=== PATIENT | male | born 1960 | race Caucasian/White ===

== ENCOUNTER 2023-08-08 17:55 | Emergency (ER) | payer MEDICAID ==
[~2023-08-08] VITALS: Ht 175.3 cm; Wt 63.6 kg
[2023-08-08] MEDS ORDERED: HYDROcodone/acetaminophen 10/325mg tab PO STA (18:03)
[2023-08-08] MEDS ORDERED: ceFAZolin 1gm IM kit IM ONE (19:15)
[2023-08-08] MEDS ORDERED: TETanus/Pertussis (Acell)/Diphther VAC/PF (Tdap-Adult) 0.5ml syringe IMVAC ONE (19:15)
[2023-08-08] MEDS ORDERED: CEPH500C2 PO (20:30)
[2023-08-08] MEDS ORDERED: IBUP-1984 PO (20:30)
[2023-08-08 21:17] VITALS: BP 110/85; PULSE 66; RESP 16; TEMP 98.3; O2SAT 96
--- NOTE | 2023-08-08 23:05 | NUR ---
I have reviewed and agree with all interventions, assessments performed and documented by Nicole RUSH.
== END 2023-08-08 21:21 | disposition home or self-care (01) ==
LOC: ER 17:56
DX: S62.631B Displaced fracture of distal phalanx of left index finger, initial encounter for open fracture (principal); W31.2XXA Contact with powered woodworking and forming machines, initial encounter; Y93.89 Activity, other specified; Y92.89 Other specified places as the place of occurrence of the external cause; Y99.8 Other external cause status
CPT/HCPCS: 73140; 90471; 90715; 96372; 99284; J0690

== ENCOUNTER 2024-12-24 19:05 | Emergency (ER) | payer MEDICAID ==
[~2024-12-24] VITALS: Ht 175.3 cm; Wt 68.1 kg
[2024-12-24 19:23] LABS: BASOPHILS # (AUTO) 0.1 X10'3 (0-0.2); BASOPHILS % (AUTO) 0.5 % (0-1); EOSINOPHILS # (AUTO) 0.4 X10'3 (0-0.9); EOSINOPHILS % (AUTO) 4.2 % (0-6); HEMATOCRIT 42.9 % (42.0-52.0); HEMOGLOBIN 14.6 g/dl (14.0-17.9); LYMPHOCYTES # (AUTO) 3.6 X10'3 (1.1-4.8); LYMPHOCYTES % (AUTO) 35.2 % (21-51); MEAN CORPUSCULAR HEMOGLOBIN 30.8 PG (27.0-31.0); MEAN CORPUSCULAR HGB CONC 34.1 g/dL (33.0-36.5); MEAN CORPUSCULAR VOLUME 90.4 FL (78-98); MEAN PLATELET VOLUME 9.1 FL (7.4-10.4); MONOCYTES # (AUTO) 1.1 X10'3 (0-0.9); MONOCYTES % (AUTO) 10.9 % (2-12); NEUTROPHILS % (AUTO) 49.2 % (42-75); PLATELET COUNT 336 X10'3 (140-440); RED BLOOD COUNT 4.75 X10'6 (4.70-6.10); RED CELL DISTRIBUTION WIDTH 12.4 % (11.5-14.5); WHITE BLOOD COUNT 10.1 X10'3 (4.5-11.0)
[2024-12-24] MEDS: naloxone 2mg/2ml inj IV STA (19:24)
[2024-12-24] MEDS: ondansetron/PF 4mg/2ml inj IV ONE (19:24)
[2024-12-24] MEDS ORDERED: NO HOME MEDS (19:25)
[2024-12-24 19:46] LABS: ALANINE AMINOTRANSFERASE 87 U/L (12-78); ALBUMIN 3.5 G/DL (3.4-5.0); ALBUMIN/GLOBULIN RATIO 0.9 (1.1-1.5); ALKALINE PHOSPHATASE 65 IU/L (46-116); ANION GAP 10 (8-16); ASPARTATE AMINO TRANSFERASE 59 U/L (10-37); BILIRUBIN,TOTAL 0.3 MG/DL (0.1-1.0); BLOOD UREA NITROGEN 15 MG/DL (7-18); BUN/CREATININE RATIO 16.9 (10.0-20.0); CALCIUM 8.5 MG/DL (8.5-10.1); CHLORIDE 105 MMOL/L (99-107); CREATININE 0.89 MG/DL (0.60-1.10); ETHANOL < 10 MG/DL (<10); GLUCOSE 219 MG/DL (70-104); MAGNESIUM 2.2 MG/DL (1.5-2.4); POTASSIUM 3.5 MMOL/L (3.5-5.1); SODIUM 142 MMOL/L (135-145); TOTAL CARBON DIOXIDE 27.5 MMOL/L (24-32); TOTAL PROTEIN 7.5 G/DL (6.4-8.2); eCRCL 80 ML/MIN; eGFR 86 ML/MIN
[2024-12-24] MEDS ORDERED: NALO4SPR BOTHNARES (23:17)
[2024-12-25 00:05] VITALS: BP 117/68; PULSE 72; RESP 12; TEMP 98.6; O2SAT 96
== END 2024-12-25 01:36 | disposition home or self-care (01) ==
LOC: ER 19:06
DX: T40.2X1A Poisoning by other opioids, accidental (unintentional), initial encounter (principal); R40.2A Nontraumatic coma due to underlying condition; Y92.89 Other specified places as the place of occurrence of the external cause
CPT/HCPCS: 36415; 80053; 80320; 83735; 84484; 85025; 93005; 96374; 96375; 99285; J2310; J2405

== ENCOUNTER 2025-01-29 12:16 | Inpatient (IN) | payer MEDICAID ==
[~2025-01-29] VITALS: Ht 175.3 cm; Wt 63.6 kg
[~2025-01-29 12:16] MED LIST: NALO4SPR BOTHNARES; NO HOME MEDS
[2025-01-29 13:40] LABS: BASOPHILS # (AUTO) 0.1 X10'3 (0-0.2); BASOPHILS % (AUTO) 0.3 % (0-1); EOSINOPHILS % (AUTO) 0.1 % (0-6); HEMATOCRIT 45.8 % (42.0-52.0); HEMOGLOBIN 15.8 g/dl (14.0-17.9); LYMPHOCYTES # (AUTO) 1.4 X10'3 (1.1-4.8); MEAN CORPUSCULAR HEMOGLOBIN 30.3 PG (27.0-31.0); MEAN CORPUSCULAR HGB CONC 34.4 g/dL (33.0-36.5); MEAN CORPUSCULAR VOLUME 88.1 FL (78-98); MEAN PLATELET VOLUME 9.5 FL (7.4-10.4); MONOCYTES # (AUTO) 2.1 X10'3 (0-0.9); MONOCYTES % (AUTO) 9.2 % (2-12); NEUTROPHILS # (AUTO) 19.1 X10'3 (1.8-7.7); NEUTROPHILS % (AUTO) 84.4 % (42-75); PLATELET COUNT 209 X10'3 (140-440); RED CELL DISTRIBUTION WIDTH 12.5 % (11.5-14.5); WHITE BLOOD COUNT 22.6 X10'3 (4.5-11.0)
[2025-01-29 13:56] LABS: ALANINE AMINOTRANSFERASE 85 U/L (12-78); ALBUMIN 3.7 G/DL (3.4-5.0); ALBUMIN/GLOBULIN RATIO 1.1 (1.1-1.5); ALKALINE PHOSPHATASE 68 IU/L (46-116); ANION GAP 7 (8-16); ASPARTATE AMINO TRANSFERASE 53 U/L (10-37); BILIRUBIN,TOTAL 1.3 MG/DL (0.1-1.0); BLOOD UREA NITROGEN 15 MG/DL (7-18); CALCIUM 8.9 MG/DL (8.5-10.1); CHLORIDE 101 MMOL/L (99-107); CREATININE 0.94 MG/DL (0.60-1.10); GLUCOSE 119 MG/DL (70-104); LIPASE 16 U/L (16-77); POTASSIUM 4.4 MMOL/L (3.5-5.1); SODIUM 137 MMOL/L (135-145); TOTAL PROTEIN 7.2 G/DL (6.4-8.2); eCRCL 71 ML/MIN; eGFR 81 ML/MIN
[2025-01-29 14:54] LABS: BILIRUBIN,URINE NEGATIVE (Neg); CLARITY,URINE CLEAR (Clear); COLOR,URINE YELLOW (Yellow); GLUCOSE, URINE NEGATIVE (Neg); KETONES,URINE NEGATIVE (Neg); LEUKOCYTE ESTERASE ,URINE NEGATIVE (Neg); NITRITES, URINE NEGATIVE (Neg); OCCULT BLOOD,URINE TRACE-INTACT (Neg); PROTEIN,URINE NEGATIVE (Neg); UROBILINOGEN,URINE 0.2 E.U/dL (0.2-1.0)
[2025-01-29 14:56] LABS: UA COLLECTION TYPE CLN CATCH MIDSTREAM
--- NOTE | 2025-01-29 14:56 | Physician Documentation ---
History of Present Illness General Chief Complaint: Headache Stated Complaint: N/V Time Seen by MD: 14:41 Primary Medical Doctor: [facility] History of Present Illness Initial Comments Otherwise healthy 64-year-old male presents to the emergency department with the acute onset today of myalgias, rigors and headache weakness. Reports yesterday went to work feeling well woke up this morning not well. Denies cough. Uncertain of fever. Denies pertinent medical history, allergies or medications. He does smoke cigarettes and occasionally drinks. Denies recent travels hospitalizations or known ill contacts. He appears nontoxic at this time yet in discomfort. Medication Reconciliation Allergies: Coded Allergies: No Known Allergies (Unverified , 01/29/25) Scheduled Naloxone HCl (Narcan), 1 SPRAYS BOTHNARES ONCE Miscellaneous Medications Home Med List (No Home Medications), (Reported) Review of Systems All Other Systems at this time: Reviewed and Negative Constitutional: Reports: fever, chills, weakness HENT: Denies: ear pain, throat pain RESP: Denies: short of breath, cough CV: Denies: chest pain GI: Reports: nausea; Denies: abdominal pain, vomiting : Denies: flank pain, hematuria, dysuria Musc: Reports: back pain Neuro: Reports: headache Integ: Denies: rash Psych: Denies: anxiety Physical Exam Physical Exam Vital Signs: RN Vital Signs have been reviewed: Yes, Temperature: 99.2, Source: Temporal, Heart Rate: 78, Respiratory Rate: 16, BP: 129/73, Pulse Oximetry: 99, Weight: 63.640 Oxygen Flow Rate: 0 General Appearance: alert, WD/WN, moderate distress Head: normal inspection Face: normal inspection Pupils/EOM/Fundus: PERRLA Ear: canal normal Nose: septal deviation Neck: non-tender, full range of motion, supple; No: meningeal signs Respiratory: lungs clear, normal breath sounds Chest: no accessory muscle use Cardiovascular: normal peripheral pulses Gastrointestinal: normal palpation Back: normal inspection, no CVA tenderness Extremities: normal range of motion Neurologic: oriented x4, wharfmaster II-XII nml as tested Motor / Sensory: no motor deficit, no sensory deficit Psychiatric: normal mood/affect Skin: normal color, warm/dry; No: rash Progress Results/Orders Results/Orders Orders - RENÉ MCLEAN Influenza Type A&B Rapid Test (01/29/25 14:59) Chest,Single View (01/29/25 ) Ceftriaxone/[id number]-[id number] 1gm (Rocephin 1 (01/29/25 17:05) Cbc/Diff (01/29/25 17:07) Culture Blood (01/29/25 17:07) Completed Orders - RENÉ MCLEAN PAC Normal Saline 1000ml (Sodium Chloride 10 (01/29/25 14:55) Ketorolac Trometh 30mg/Ml Vial (Toradol (01/29/25 14:55) Ondansetron Inj. (Zofran 4mg/2ml Vial) (01/29/25 14:55) Acetaminophen 1,000mg/100ml Iv (Ofirmev (01/29/25 14:55) Chest,Single View (01/29/25 ) Medications Received in ER Medications (Trade) Dose Ordered Sig/Stephania Route PRN Reason Start Time Stop Time Status Last Admin Dose Admin Sodium Chloride 1,000 ml @ 1,000 mls/hr ONCE ONCE IV 01/29/25 14:55 01/29/25 15:54 DC 01/29/25 15:19 1,000 MLS/HR (Toradol inj. 30mg/ml) 30 mg ONCE ONCE IV 01/29/25 14:55 01/29/25 14:57 DC 01/29/25 15:18 30 MG (Zofran 4mg/2ml vial) 4 mg ONCE ONCE IV 01/29/25 14:55 01/29/25 14:57 DC 01/29/25 15:19 4 MG Acetaminophen 100 ml @ 400 mls/hr ONCE ONCE IV 01/29/25 14:55 01/29/25 15:09 DC 01/29/25 15:19 400 MLS/HR Vital Signs 01/29/25 01/29/25 01/29/25 12:19 14:37 15:18 Temp 99.2 99.2 Pulse 99 78 Resp 16 16 18 B/P (MAP) 92/60 129/73 (91) Pulse Ox 95 99 O2 Flow Rate 0 Laboratory Tests Test 01/29/25 13:23 01/29/25 14:35 White Blood Count 22.6 H Red Blood Count 5.20 Hemoglobin 15.8 Hematocrit 45.8 Mean Corpuscular Volume 88.1 Mean Corpuscular Hemoglobin 30.3 Mean Corpuscular Hemoglobin Concent 34.4 Red Cell Distribution Width 12.5 Platelet Count 209 Mean Platelet Volume 9.5 Neutrophils (%) (Auto) 84.4 H Lymphocytes (%) (Auto) 6.0 L Monocytes (%) (Auto) 9.2 Eosinophils (%) (Auto) 0.1 Basophils (%) (Auto) 0.3 Neutrophils # (Auto) 19.1 H Lymphocytes # (Auto) 1.4 Monocytes # (Auto) 2.1 H Eosinophils # (Auto) 0.0 Basophils # (Auto) 0.1 CBC Comment Sodium Level 137 Potassium Level 4.4 Chloride Level 101 Carbon Dioxide Level 29.0 Anion Gap 7 L Blood Urea Nitrogen 15 Creatinine 0.94 Estimated GFR/1.73 m2 81 BUN/Creatinine Ratio 16.0 Glucose Level 119 H Calcium Level 8.9 Total Bilirubin 1.3 H Aspartate Amino Transf (AST/SGOT) 53 H Alanine Aminotransferase (ALT/SGPT) 85 H Alkaline Phosphatase 68 Total Protein 7.2 Albumin 3.7 Globulin 3.5 Albumin/Globulin Ratio 1.1 Lipase 16 Chemistry Comments Urine Specimen Description Cln catch midstream Urine Color Yellow Urine Clarity Clear Urine pH 6.0 Urine Specific [place] <=1.005 Urine Protein Negative Urine Glucose (UA) Negative Urine Ketones Negative Urine Occult Blood Trace-intact Urine Nitrite Negative Urine Bilirubin Negative Urine Urobilinogen 0.2 Urine Leukocyte Esterase Negative Urine RBC 10-20 Urine WBC 0-4 Urine Squamous Epithelial Cells Few Urine Bacteria None seen Urine Mucus None seen Urine Culture Indicated Not ind Volume Urine Centrifuged 10 ml Urine Comment Medical Decision Making Differential Diagnosis Examination history a 64-year-old male with chronic history consistent with acute viral or bacterial process. Leukocytosis noted in 22. This is with a left shift. Influenza screening unobtainable due to lab malfunction. COVID scr eening pending. We will go ahead and provide patient with IV Tylenol and Toradol. Symptomatically patient improved requiring less blankets and feeling much better. Still continues to be fatigue. Clinical suspicion that there was an underlying bacterial process per go ahead and screen with chest x-ray. Chest x-ray imaging consistent with a left lower lobe pneumonia/airspace disease and/or neoplasm. We will go ahead and place patient in pneumonia protocol. Delayed clinical diagnosis due to an atypical presentation initially thought to be that of acute viral syndrome. We will consult hospitalist for admission. Patient remains non hypoxic. Other differentials considered must include PE, CHF, neoplasm to include neoplasms involving the bladder. Departure Disposition: 09 ADMITTED INPATIENT Impression: Primary Impression: Pneumonia Qualified Codes: J18.9 - Pneumonia, unspecified organism Additional Impressions: Leukocytosis Qualified Codes: D72.829 - Elevated white blood cell count, unspecified Hematuria Qualified Codes: R31.9 - Hematuria, unspecified Referrals: NO PRIMARY CARE PROVIDER (PCP) Signature Scribe Signature: . Attestation: . RENÉ MCLEAN PAC January 29, 2025 14:56
[2025-01-29 15:00] LABS: BACTERIA,URINE NONE SEEN /HPF (Neg); MUCUS STRANDS NONE SEEN /LPF (Neg); SQUAMOUS EPITHELIAL CELL,UR FEW /LPF (FEW); WBC,URINE 0-4 /HPF (0-4)
[2025-01-29] MEDS: ketorolac trometh 30MG/ML vial 30 MG/ML VIAL IV ONE (15:18)
[2025-01-29] MEDS: ondansetron/PF 4mg/2ml inj IV ONE (15:19)
[2025-01-29] MEDS: acetaminophen 1,000mg/100ml IV 100 ML IV ONE (15:19)
[2025-01-29] MEDS: normal saline 1000ml 1,000 ML IV ONE (15:19)
--- NOTE | 2025-01-29 16:33 | RADIOLOGY REPORT ---
CHEST RADIOGRAPH Indication: weakness Technique: Single frontal view of the chest was obtained Comparison: None FINDINGS: Lines and Tubes: None Lungs: Left lower lobe airspace disease may be secondary to neoplasm or infection Pleura: No effusion. No pneumothorax. Cardiomediastinal contours: Unremarkable Bones: No acute osseous abnormality. IMPRESSION: 1. Left lower lobe airspace disease. May be secondary to neoplasm or infection.
[2025-01-29] MEDS: CefTRIAXone/D5W-Rocephin 1gm 50 ML IV ONE (17:45)
[2025-01-29 18:04] LABS: BASOPHILS % (AUTO) 0.1 % (0-1); EOSINOPHILS % (AUTO) 0 % (0-6); HEMATOCRIT 41.6 % (42.0-52.0); HEMOGLOBIN 14.1 g/dl (14.0-17.9); LYMPHOCYTES # (AUTO) 1.6 X10'3 (1.1-4.8); MEAN CORPUSCULAR HGB CONC 33.9 g/dL (33.0-36.5); MEAN CORPUSCULAR VOLUME 88.5 FL (78-98); MEAN PLATELET VOLUME 9.8 FL (7.4-10.4); MONOCYTES % (AUTO) 8.6 % (2-12); NEUTROPHILS # (AUTO) 19.4 X10'3 (1.8-7.7); NEUTROPHILS % (AUTO) 84.3 % (42-75); PLATELET COUNT 176 X10'3 (140-440); RED BLOOD COUNT 4.71 X10'6 (4.70-6.10); RED CELL DISTRIBUTION WIDTH 12.6 % (11.5-14.5); WHITE BLOOD COUNT 23.1 X10'3 (4.5-11.0)
[2025-01-29 18:19] LABS: ALBUMIN 3.2 G/DL (3.4-5.0); ANION GAP 7 (8-16); BLOOD UREA NITROGEN 13 MG/DL (7-18); BUN/CREATININE RATIO 13.4 (10.0-20.0); CALCIUM 8.4 MG/DL (8.5-10.1); CHLORIDE 105 MMOL/L (99-107); CREATININE 0.97 MG/DL (0.60-1.10); GLUCOSE 110 MG/DL (70-104); POTASSIUM 3.9 MMOL/L (3.5-5.1); PRO BRAIN NATRIURETIC PEPTIDE 217 PG/ML (0-125); SODIUM 139 MMOL/L (135-145); TOTAL CARBON DIOXIDE 27.4 MMOL/L (24-32); eCRCL 68 ML/MIN; eGFR 78 ML/MIN
[2025-01-29] MEDS ORDERED: ondansetron/PF 4mg/2ml inj IV PRN (18:40)
[2025-01-29] MEDS ORDERED: magnesium sulf-water 2g/50mL 50 ML IV PRN (18:40)
[2025-01-29] MEDS ORDERED: potassium Cl 20 mEq SR tablet PO PRN ×2 (18:40)
[2025-01-29] MEDS ORDERED: acetaminophen 325mg tablet PO PRN (18:40)
[2025-01-29] MEDS ORDERED: magnesium Cl slow-release 64mg tablet PO PRN (18:40)
[2025-01-29] MEDS ORDERED: mag hydrox/Alum hydrox/simeth 30ml oral suspension PO PRN (18:40)
[2025-01-29] MEDS ORDERED: magnesium sulf-water 4G/100mL 100 ML IV PRN (18:40)
[2025-01-29] MEDS ORDERED: docusate sod 100mg capsule PO PRN (18:40)
[2025-01-29] MEDS ORDERED: morphine 2 MG/ML inj. syringe IV PRN (18:40)
[2025-01-29] MEDS ORDERED: potassium Cl 40MEQ/1/2NS 520ml 520 ML IV PRN (18:40)
[2025-01-29] MEDS: PERFLUTREN PROTEIN-A MICROSPHR (Optison) 0.22 MG/ML 3ML VIAL IV ONE (19:02)
[2025-01-29] MEDS: normal saline 1000ml 1,000 ML IV SCH (19:05)
[2025-01-29] MEDS ORDERED: iohexol 300mg/ml 100ml inj. ONE (19:08)
--- NOTE | 2025-01-29 19:08 | HISTORY AND PHYSICAL-Residence ---
History & Physical Providers to CC Resident Creating Document: ALLEGRA PEREZ RES ~ History of Present Illness Primary Medical Doctor: [facility] Reason for Admit\Complaint: Community-acquired pneumonia with hematuria History of Present Illness A 64 years old male with no known significant past medical history except for the substance abuse and OD for opiate presented to ER for extremely generalized weakness and lethargic, new onset headaches, shortness of breaths and coughing since last night. He was very hypersomnolence, lethargic and fatigued, could not fully awake to have conversations, but alert awake and orientated and not confused. Barely answered the questions. The nurse reported that the patient is barely put effort to stand up from the wheelchair when he came in, he stated that he was not sleeping well last night because of the headaches and was given one time dose of Toradol and Tylenol made him deep sleep in ER. He endorsed that he was having headaches at the frontal forehead areas that waking up dropping in nature, denies projectile vomiting, any new visual changes and focal neurologic deficits although he did not answer back for the bladder and bowel incontinence. He has never experienced the kind of throbbing headaches before. He only reported that all of his generalized weakness fatigue and tiredness starting from last night. He reported that he has been having shortness of breath, dry coughing since last night, however, denies orthopnea, PND, bilateral pedal edema and CHF history. He denies any sick contacts and recent travel history, any history of malignancy diagnosed and treatment within six weeks. He did not have to use oxygen at home. He denies fever with chills and rigors, chest pain pressure discomfort, abdominal and back pain, dysuria and nocturia. He even did not notice about the blood in the urine. 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 Allergies: Coded Allergies: No Known Allergies (Unverified , 01/29/25) Home Medications Home Medications Active Reported No Home Medications (Home Med List) Each Past Medical History Past Medical History no known significant past medical history except for the substance abuse and OD for opiate presented Past Surgical History Surgical History Comment Significant surgical history Past Social History Social History Comment He stated that he is living with his mom on and did not know how old she is. He said that he is living in the house. He started smoking since he was 8 years old, reported for only five cigarettes per day, denies using any illicit drugs. He reported that he only drinks two cans of beer two days per week. ROS All Other Systems: Reviewed and Negative ROS ROS were WNL except for the above mentioned in HPI Exam Vitals: Vital Signs Date Time Temp Pulse Resp B/P (MAP) Pulse Ox O2 Delivery O2 Flow Rate FiO2 01/29/25 17:53 99.2 68 18 101/62 (75) 99 0 General: General: Hypersomnolence, Well alert, well oriented, not confused, not agitated, not in acute distress, well cooperated during the physical. HEENT: HEENT: Conjunctive are pink, sclerae clear, no icterus, pupil is equal in both sides and, reactive to light and no pinpoint pupils, no ear discharge, no pharyngeal erythema or an edema, mouth and lips are dry. Neck: Neck: Supple, no JVD, no lymphadenopathy and thyromegaly. Chest: Lungs:Equal air entry on both lungs, no additional sounds Cardiovascular: Heart: S1-S2 regular sinus rhythm and, regular rate, no gallops, no rubs, no murmurs Abdomen: Abdomen: No visible peristalsis, Bowel sounds present on auscultation, soft, nontender, no guarding, no rigidity Extremities: Extremities: No obvious deformities, no pitting edema bilaterally, capillary refill intact, able to wiggle toes both sides, peripheral pulsations are intact on both sides Central Nervous System: CLOTH ROLL WINDER: No focal neurological deficits, no motor and sensory weakness in all 4 extremities, could move all 4 extremities Motor and sensory all four limbs within normal limit, DTR 2+, no extensor plantar response bilaterally. No peripheral cranial nerve deficiency bilaterally. Musculoskeletal: Musculoskeletal: No joint swelling, deformities, inflammations, and no scoliosis and back tenderness Skin: Skin: No active skin lesions and rashes Diagnostic Data Last Recorded Lab Results: 01/29/25 1721 01/29/25 1721 Counseling Services Smoking & Tobacco Cessation: 3-10 Minutes Advance Care Planning Advanced Care plannin - 30 Minutes Additional Plan A 64 years old male with no known significant past medical history except for the substance abuse and OD for opiate presented to ER for extremely generalized weakness and lethargic, new onset headaches, shortness of breaths and coughing since last night. # SIRS # community-acquired pneumonia -continue IV Zithromax and ceftriaxone-D1 -ipratropium/albuterol q.4 hours as needed, sputum culture and sensitivity, IV Solu-Medrol 40 mg b.i.d. -resuscitated with IV fluids in ER, followed by IV fluids normal saline 70 mL/hr in the setting of proBNP to one seven without having any acute congestive heart failure exacerbation. -pending CT chest abdomen and pelvis with IV contrast -CURBs 65 showed two- for in floor pneumonia management # Headaches # Suspected left lower lobe pulmonary air disease malignancy # microscopic hematuria -IV morphine, Tylenol as needed for the pain -continue IV fluids 70 mL/hr -pending CT chest abdomen and pelvis with IV contrast -pending exfoliative urine cytology for the possible bladder cancer/RCC # hypersomnolence # mild hyperbilirubinemia with mild transaminitis -pending CT head without IV contrast -pending urine tox screen, ammonia -monitor blood glucose -random blood sugar 110, pending HGB A1c -ALT is larger than AST -no electrolyte imbalances -falls precautions, aspiration precautions # substance abuse-EtOH, tobacco -social worker assistant were requested and appreciate -continue mild alcohol withdrawal protocol with nicotine patch 14 mg daily -strongly encouraged to quit drinking and smoking , educated about the consequences of the substance abuse. -seizures and falls precautions CODE STATUS: Full code DVT prophylaxis: Sc heparin Analgesia/sedation: IV morphine and Tylenol Lines/tubes: Peripheral line GI prophylaxis: None Nutrition: Heart healthy aspiration precautions Prognosis: Guarded Disposition: Continue medical management, IV fluids and antibiotics, pending CT scans, urine cytology, withdrawal controlled, headaches pain control, PT eval and DC plan. Resident MD attestation: Patient was seen and examined with attending MD, Dr. Jerome PEREZ MD Internal Medicine Resident, PGY2 [facility] Date of Service: January 29, 2025 Billing Provider: ESA SEGURA MD Common Visit Codes: 22101-FHNRGFR INP/OBS CARE (HIGH) Secondary Visit Codes: 30180-[id number] CARE PLAN 30 MINUTES ALLEGRA PEREZ RES January 29, 2025 19:08 ESA SEGURA MD January 30, 2025 21:00
[2025-01-29] MEDS ORDERED: haloperidol lactate 5mg/ml inj IM PRN (19:15)
[2025-01-29] MEDS ORDERED: haloperidol 5mg tablet PO PRN (19:15)
[2025-01-29] MEDS ORDERED: ipratropium/albuterol 3ml nebule NEB PRN (19:20)
[2025-01-29] MEDS ORDERED: diazepam inj 5 MG/ML inj. IV PRN (19:20)
[2025-01-29 19:22] LABS: HEMOGLOBIN A1C 5.8 % (4.5-6.2)
[2025-01-29 19:27] LABS: URINE AMPHETAMINE SCREEN POSITIVE (Neg); URINE BARBITUATE SCREEN NEGATIVE (Neg); URINE BENZODIAZEPINES SCREEN NEGATIVE (Neg); URINE CANNABINOID SCREEN NEGATIVE (Neg); URINE COCAINE SCREEN NEGATIVE (Neg); URINE METHADONE SCREEN NEGATIVE (Neg); URINE OPIATE SCREEN NEGATIVE (Neg); URINE PHENCYCLIDINE SCREEN NEGATIVE (Neg)
[2025-01-29 20:00] VITALS: BP 112/52; PULSE 63; RESP 14; TEMP 99.7; O2SAT 96
[2025-01-29] MEDS: heparin, porcine 5000 units/ml vial SQ SCH (20:00)
[2025-01-29 20:14] VITALS: PULSE 72; RESP 16; O2SAT 98
--- NOTE | 2025-01-29 20:14 | RADIOLOGY REPORT ---
Clinical History lung air disease to exclude malignancy and hematuria Comparison None Technique: Contiguous axial CT images of the head without intravenous contrast administration. Coron al and sagittal reformation was performed. All CT scans at this medical facility are performed using dose modulation techniques as appropriate t o a performed exam including the following: Automated exposure control was utilized; adjustment of th e mA and/or kV according to patient size; and use of iterative reconstruction technique. All CT studies are reported to the Dose Index Registry of the [employer]. Without Contrast Radiation Dose: CTDI (mGy): 52.00; DLP (mGy-cm): 955.47 RADHA ENCINAS, [id number] Findings: The brain parenchyma shows normal kumar-white matter differentiation without any mass, bleed, edema, o r herniation. The sulci, cisterns, and ventricles are intact. No extra-axial fluid collection or sk ull lesion is present. The imaged portions of the paranasal sinuses and mastoid air cells are clear. Both orbits are grossl y normal. Impression: 1. No acute intracranial abnormality. This report was electronically signed by Praneeth Abarca MD on 01/29/2025 8:10:38 PM.
[2025-01-29 20:15] VITALS: RESP 14; O2SAT 96
[2025-01-29] MEDS: K and/or MAG REPLACEMENT MC SCH (20:46)
[2025-01-29] MEDS: methylPREDNISolone sod succ/PF 40mg inj. IV SCH (20:51)
[2025-01-29] MEDS: thiamine 100mg/ml 2ml inj. IV SCH (20:53)
[2025-01-29 22:00] VITALS: BP 117/52; PULSE 75; RESP 14; TEMP 98.4; O2SAT 95
--- NOTE | 2025-01-30 02:46 | RADIOLOGY REPORT ---
Clinical History lung air disease to exclude malignancy and hematuria Comparison None Technique: Contiguous axial CT images of the chest, abdomen, and pelvis after intravenous contrast ad ministration. Coronal and sagittal reformation was performed. All CT scans at this medical facility are performed using dose modulation techniques as appropriate t o a performed exam including the following: Automated exposure control was utilized; adjustment of th e mA and/or kV according to patient size; and use of iterative reconstruction technique. All CT studies are reported to the Dose Index Registry of the [employer]. Contrast: OMNIPAQUE 300, 100ML Radiation Dose: CTDI (mGy): 7.61; DLP (mGy-cm): 709.93 RADHA ENCINAS, [id number] Findings: Multiple patchy to confluent opacities are in the peripheral left lower lobe. No pneumothorax or ple ural effusion is present. The trachea and central bronchi are patent. The heart is not enlarged. The coronary arteries show mild calcified atherosclerosis. No pericardi al effusion or lymphadenopathy is present. The thoracic aorta shows normal course and diameter. The liver, gallbladder, spleen, both adrenal glands, both kidneys, and pancreas are normal. No hydro nephrosis or ureteral stone is present. The stomach, small bowel, and colon show normal caliber and wall thickness. The appendix is not well seen. No free air, free fluid, inflammatory changes, or lymphadenopathy is in the abdomen or pelvis. The abdominal aorta shows normal course and diameter. The urinary bladder is intact. No acute fracture or bony destructive lesion is in the imaged portion of the skeleton. Impression: 1. Left lower lobe pulmonary opacities concerning for pneumonia or other inflammatory changes. 2. No intra-abdominal acute abnormality. This report was electronically signed by Praneeth Abarca MD on 01/30/2025 2:43:03 AM.
[2025-01-30 05:44] LABS: BASOPHILS % (AUTO) 0 % (0-1); EOSINOPHILS % (AUTO) 0 % (0-6); HEMATOCRIT 43.4 % (42.0-52.0); HEMOGLOBIN 14.9 g/dl (14.0-17.9); LYMPHOCYTES # (AUTO) 1.1 X10'3 (1.1-4.8); LYMPHOCYTES % (AUTO) 4.7 % (21-51); MEAN CORPUSCULAR HEMOGLOBIN 30.2 PG (27.0-31.0); MEAN CORPUSCULAR HGB CONC 34.3 g/dL (33.0-36.5); MEAN CORPUSCULAR VOLUME 88.1 FL (78-98); MEAN PLATELET VOLUME 10.8 FL (7.4-10.4); MONOCYTES # (AUTO) 1.2 X10'3 (0-0.9); MONOCYTES % (AUTO) 4.8 % (2-12); NEUTROPHILS # (AUTO) 21.9 X10'3 (1.8-7.7); NEUTROPHILS % (AUTO) 90.5 % (42-75); PLATELET COUNT 182 X10'3 (140-440); RED BLOOD COUNT 4.92 X10'6 (4.70-6.10); RED CELL DISTRIBUTION WIDTH 12.6 % (11.5-14.5); WHITE BLOOD COUNT 24.2 X10'3 (4.5-11.0)
[2025-01-30 06:00] VITALS: BP 125/70; PULSE 60; RESP 18; TEMP 98.6; O2SAT 96
[2025-01-30 06:14] LABS: ALANINE AMINOTRANSFERASE 64 U/L (12-78); ALBUMIN/GLOBULIN RATIO 0.8 (1.1-1.5); ALKALINE PHOSPHATASE 62 IU/L (46-116); ANION GAP 5 (8-16); ASPARTATE AMINO TRANSFERASE 26 U/L (10-37); BLOOD UREA NITROGEN 16 MG/DL (7-18); BUN/CREATININE RATIO 21.1 (10.0-20.0); CALCIUM 8.9 MG/DL (8.5-10.1); CHLORIDE 107 MMOL/L (99-107); CHOLESTEROL 111 MG/DL (0-200); CREATININE 0.76 MG/DL (0.60-1.10); GLUCOSE 164 MG/DL (70-104); HDL CHOLESTEROL 55 MG/DL (35-60); LDL CHOLESTEROL 50 MG/DL (50-100); MAGNESIUM 2.1 MG/DL (1.5-2.4); POTASSIUM 4.4 MMOL/L (3.5-5.1); SODIUM 139 MMOL/L (135-145); TOTAL CARBON DIOXIDE 27.5 MMOL/L (24-32); TOTAL PROTEIN 6.7 G/DL (6.4-8.2); TRIGLYCERIDES 26 MG/DL (20-135); eCRCL 87 ML/MIN; eGFR > 90 ML/MIN
[2025-01-30] MEDS ORDERED: azithromycin/NS 500mg/250ml 250 ML IV SCH (08:00)
[2025-01-30] MEDS ORDERED: CefTRIAXone 2gm/D5W 50ml BAG 50 ML IV SCH (08:00)
[2025-01-30] MEDS: nicotine 14mg patch - 24hr TD SCH (08:00)
[2025-01-30] MEDS: multivitamins, therapeutics tablet PO SCH (08:06)
[2025-01-30] MEDS: CefTRIAXone/D5W-Rocephin 1gm 50 ML IV SCH (08:07)
[2025-01-30] MEDS: azithromycin/NS 500mg/250ml 250 ML IV SCH (09:28)
[2025-01-30] MEDS: folic acid 1mg/0.2ml inj IV SCH (09:33)
[2025-01-30 10:03] VITALS: BP 126/65; PULSE 66; RESP 20; TEMP 98.8; O2SAT 98
--- NOTE | 2025-01-30 18:07 | PROGRESS NOTE- Residence ---
Progress Note - Resident Providers to CC Resident Creating Document: ALLEGRA PEREZ RES ~ Antibiotic Timeout Antibiotic Ordered?: Yes Subjective Patient reported that his headache is gone and no more headaches now. He is more alert awake and responding appropriately to the questions today. He commented that he has not been using fentanyl since last two weeks and surprisingly he has a positive fentanyl in his urine tox screen. He stated that his headaches lasted for more than 12 hours since last night. Objective Vital Signs Date Time Temp Pulse Resp B/P (MAP) Pulse Ox O2 Delivery O2 Flow Rate FiO2 01/30/25 10:36 Room Air 01/30/25 10:03 98.8 66 20 126/65 (85) 98 01/29/25 20:14 0 21 Result Diagram: 01/30/25 0448 01/30/25 0448 Patient was seen at the isolated room since the patient's flu status can not be excluded out in this hospital. Vitals were stable at the moment with temp 98.6 F, NM 60/minute, RR 18/minute, BP 125/70 mm Hg, pulse oximetry 96% on room air. General: Well alert, well oriented, not confused, not agitated, not in acute distress, well cooperated during the physical. HEENT: Conjunctive are pink, sclerae clear, no icterus, pupil is equal in both sides, reactive to light, no ear discharge, no pharyngeal erythema or an edema, mouth and lips are moist. Neck: Supple, no JVD, no lymphadenopathy and thyromegaly. 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 Plan Plan # SIRS and questionable sepsis POA # community-acquired pneumonia 01/30/2025: Continue IV sodium chloride 0.9% 70 mL/hr, maintaining SpO2 98% on room air. -continue IV antibiotics day two, plan to switch to oral tomorrow -respiratory supports -ruled out CHF exacerbation with no signs and symptoms of acute CHF exacerbation at the moment -CT chest abdomen and pelvis W/IV contrast showed Impression: 1. Left lower lobe pulmonary opacities concerning for pneumonia or other inflammatory changes. 2. No intra-abdominal acute abnormality. -report for 2D echocardiogram on 01/30/2025 pending 01/29/2025-continue IV Zithromax and ceftriaxone-D1 -ipratropium/albuterol q.4 hours as needed, sputum culture and sensitivity, IV Solu-Medrol 40 mg b.i.d. -resuscitated with IV fluids in ER, followed by IV fluids normal saline 70 mL/hr in the setting of proBNP to one seven without having any acute congestive heart failure exacerbation. -pending CT chest abdomen and pelvis with IV contrast -CURBs 65 showed two- for in floor pneumonia management # Headaches # Suspected left lower lobe pulmonary air disease malignancy- Ruled out with CT scan # microscopic hematuria 01/30/2025: No more headaches -CT chest W/IV contrast showed left lower lobe pneumonia or inflammatory changes, ruled out malignancy -no active L UTI signs and symptoms, should be covered with IV ceftriaxone 01/29/2025-IV morphine, Tylenol as needed for the pain -continue IV fluids 70 mL/hr -pending CT chest abdomen and pelvis with IV contrast -pending exfoliative urine cytology for the possible bladder cancer/RCC # hypersomnolence # mild hyperbilirubinemia with mild transaminitis-normalized 01/30/2025: Alert awake and conscious, LFT normalized after IV fluids -hyperglycemia ranging between 120s to 160s, HGB A1c 5.8 without having anemia, hospital sugar goes targeted between 140-180 -ammonia within normal with 17 01/29/2025 -pending CT head without IV contrast -pending urine tox screen, ammonia -monitor blood glucose -random blood sugar 110, pending HGB A1c -ALT is larger than AST -no electrolyte imbalances -falls precautions, aspiration precautions # substance abuse-EtOH, tobacco -social media job titles were requested and appreciate -continue mild alcohol withdrawal protocol with nicotine patch 14 mg daily -strongly encouraged to quit drinking and smoking , educated about the consequences of the substance abuse. -seizures and falls precautions CODE STATUS: Full code DVT prophylaxis: Sc heparin Analgesia/sedation: IV morphine and Tylenol Lines/tubes: Peripheral line GI prophylaxis: None Nutrition: Heart healthy aspiration precautions Prognosis: Guarded Disposition: Continue medical management, IV fluids and antibiotics, pending CT scans, urine cytology, withdrawal controlled, headaches pain control, PT eval and DC plan tomorrow. Resident MD attestation: Patient was seen and examined with attending MD, Dr. Jerome PEREZ MD Internal Medicine Resident, PGY2 [facility] Addendum pt s main complain on presentation was headache; pt states that he doesn t use fentanyl, poss took meth laced with fentanyl; headache due to it?; headache resolved Date of Service: January 30, 2025 Billing Provider: ESA SEGURA MD Common Visit Codes: 95417-[id number] INP/OBS CARE(HIGH) ALLEGRA PEREZ RES January 30, 2025 18:07 ESA SEGURA MD January 30, 2025 21:08
[2025-01-30 18:30] VITALS: BP 136/68; PULSE 82; RESP 18; TEMP 97.6; O2SAT 97
[2025-01-30 22:00] VITALS: BP 152/76; PULSE 65; RESP 16; TEMP 99.3; O2SAT 96
[2025-01-31 05:44] LABS: BASOPHILS % (AUTO) 0.1 % (0-1); EOSINOPHILS % (AUTO) 0 % (0-6); HEMOGLOBIN 13.8 g/dl (14.0-17.9); LYMPHOCYTES # (AUTO) 1.4 X10'3 (1.1-4.8); LYMPHOCYTES % (AUTO) 5.4 % (21-51); MEAN CORPUSCULAR HEMOGLOBIN 30.5 PG (27.0-31.0); MEAN CORPUSCULAR HGB CONC 34.6 g/dL (33.0-36.5); MEAN PLATELET VOLUME 10.4 FL (7.4-10.4); MONOCYTES % (AUTO) 4.2 % (2-12); NEUTROPHILS # (AUTO) 22.5 X10'3 (1.8-7.7); NEUTROPHILS % (AUTO) 90.3 % (42-75); PLATELET COUNT 193 X10'3 (140-440); RED BLOOD COUNT 4.54 X10'6 (4.70-6.10); RED CELL DISTRIBUTION WIDTH 12.4 % (11.5-14.5); WHITE BLOOD COUNT 24.9 X10'3 (4.5-11.0)
[2025-01-31 06:03] LABS: ALANINE AMINOTRANSFERASE 49 U/L (12-78); ALBUMIN 2.7 G/DL (3.4-5.0); ALBUMIN/GLOBULIN RATIO 0.8 (1.1-1.5); ALKALINE PHOSPHATASE 61 IU/L (46-116); ANION GAP 6 (8-16); ASPARTATE AMINO TRANSFERASE 23 U/L (10-37); BILIRUBIN,TOTAL 0.4 MG/DL (0.1-1.0); BLOOD UREA NITROGEN 16 MG/DL (7-18); BUN/CREATININE RATIO 25.4 (10.0-20.0); CALCIUM 8.5 MG/DL (8.5-10.1); CHLORIDE 106 MMOL/L (99-107); CREATININE 0.63 MG/DL (0.60-1.10); GLUCOSE 189 MG/DL (70-104); POTASSIUM 4.3 MMOL/L (3.5-5.1); SODIUM 138 MMOL/L (135-145); TOTAL CARBON DIOXIDE 25.7 MMOL/L (24-32); TOTAL PROTEIN 6.3 G/DL (6.4-8.2); eCRCL 105 ML/MIN; eGFR > 90 ML/MIN
[2025-01-31] MEDS: morphine 2 MG/ML inj. syringe IV PRN (06:07)
[2025-01-31] MEDS: magnesium hydroxide 30ml (MOM) UD suspension PO PRN (06:07)
[2025-01-31 06:58] VITALS: BP 128/70; PULSE 82; RESP 20; TEMP 98.7; O2SAT 98
[2025-01-31 08:00] VITALS: RESP 18
--- NOTE | 2025-01-31 09:54 | CARDIOLOGY REPORT ---
APPROVED REPORT EXAM: Comprehensive 2D, Doppler, and color-flow Echocardiogram. 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 169.3 cm/s AoV VTI 32.6 cm AO Peak GR. 11.5 mmHg AO Mean GR. 5 mmHg LVOT VTI 27.93 cm LVOT Peak Giovani. 120.5 cm/s NETTE(VTI)/BSA 2.66 cm2/m2 NETTE (VTI) 2.66 cm2 Mitral Valve MV E Velocity 81.4 cm/s MV Peak Gr. 5 mmHg MV DECEL TIME 232 ms MV A Velocity 67.3 cm/s MV Mean Gr. 2 mmHg MV PHT 56 ms E/A Ratio 1.2 MVA (PHT) 3.93 cm2 MV JGxy952.8 cm/sMV VMean62.9 cm/s MVA VTI3.03 cm2MV VTI28.7 cm TDI Medial E' P. V 14.54 cm/s E/Medial E' 5.6 Pulmonary Valve RVOT VTI 17.0 cm Tricuspid Valve TR P. Velocity 236 cm/s RAP ESTIMATE 10 mmHg TR Peak Gr. 22 mmHg RVSP 32 mmHg Pulmonary Vein S1 Velocity 91.1 cm/s D2 Velocity 84.5 cm/s PVa Jbgoqlbw54.7 cm/s PVa Qkbniobz500 msec LEFT VENTRICLE Normal LV size and wall thickness. Overall systolic function is normal. Overall LVEF is 60-65%. RIGHT VENTRICLE Right ventricle is mildly dilated with reduced function. Estimated PA systolic pressure is 32 mmHg. ATRIA The left atrium size is normal. The right atrium size is normal. AORTIC VALVE Trileaflet AV appears sclerotic without stenosis or insufficiency. MITRAL VALVE Mild Moderate MV annular calcification without stenosis. Trace regurgitation. TRICUSPID VALVE TV appears structurally normal with trace regurgitation. PULMONIC VALVE Normal PV without stenosis, physiologic insufficiency. GREAT VESSELS The aortic root is normal in size. IVC is normal in size and collapses less than 50% with inspiration . PERICARDIUM Normal pericardium. No pericardial effusion seen. Other Information Study Quality: Adequate Conclusion Normal LV size and wall thickness. Overall systolic function is normal. Overall LVEF is 60-65%. Right ventricle is mildly dilated with reduced function. Estimated PA systolic pressure is 32 mmHg. The left atrium size is normal. The right atrium size is normal. Trileaflet AV appears sclerotic without stenosis or insufficiency. Mild Moderate MV annular calcification without stenosis. Trace regurgitation. TV appears structurally normal with trace regurgitation. Normal pericardium. No pericardial effusion seen.
[2025-01-31] MEDS ORDERED: LEVO750T68 PO (12:02)
--- NOTE | 2025-01-31 18:35 | DISCHARGE SUMMARY-Residence ---
Discharge Summary Providers to CC Resident Creating Document: JAMILA NAYLORCOREY ~ Discharge Summary Admission Diagnosis: Community acquired pneumonia with hematuria Hospital Course DATE OF ADMISSION: 01/29/2025 DATE OF DISCHARGE: 01/31/2025 Discharge Diagnosis\Comment: Community-acquired pneumonia: POA SIRS secondary to above Microscopic hematuria Substance abuse- methamphetamine, ethyl alcohol and tobacco Operations\Procedures: None Consultants: None Complications: None Condition on DC: Stable New Medications: Levofloxacin (Levofloxacin) 750 Mg Tablet 750 MG PO DAILY, #7 TAB Discontinued Medications: Home Med List (No Home Medications) Each Discharge Summary: This is a 64-year-old male patient with no known past medical history presents to the hospital with complaints of increased unless weakness, lethargy, headaches, and shortness of breath associated with coughing. Admission labs were prominent for significantly elevated white count at 23,000. However, examined history was limited as the patient was acutely intoxicated on drugs including methamphetamine. A CT chest abdomen and pelvis was obtained with contrast in the hospital, revealed left lower lobe pulmonary opacities which were concerning for pneumonia or other inflammatory changes and no acute intra- abdominal pathology noted. IV azithromycin Rocephin were started we will continued through the hospital stay for two days. He was also treated with duo nebs p.r.n. and IV Solu-Medrol 40 mg b.i.d.. Over the course of the hospital s thania, his headaches have resolved and he became less somnolent as his admission. Due to this finding, it is safe to understand that the patients initial presentation was secondary to the drug abuse. At discharge, his white count had remained elevated but the patient's blood pressure is, temperature is and cultures had remained negative identifying no source of infection or etiology for leukocytosis to be secondary some an infection. Review of prior charts revealed that the patient had presented to the hospital due to overdose of opiates requiring reversal with Narcan. On repeated questioning, he denied use of fentanyl but urinalysis was positive for fentanyl and methamphetamine. Due to this, the patient was made to understand that if he is not using fentanyl, he has methamphetamine is likely least with the same and that he needs to maintain caution. Patient was in good understanding and was willing to be discharged. Medications at discharge: Levaquin 750 mg for seven days Physical exam at discharge: General: Awake and Alert, no acute distress. HEENT: Conjunctiva pink, Sclera clear, Mucus Membranes moist. Neck: Supple without masses and tenderness. Resp: Unlabored. Lungs clear to auscultation bilaterally. Heart: Regular Rate and rhythm, normal S1 and S2 without murmur, rub or gallop. Abdomen: Soft and non tender no organomegaly Extremities: No cyanosis,clubbing or edema. Skin: Warm and Dry. Labs at discharge: WBC 24.9, RBC 4.5, hemoglobin 13.8, hematocrit 40.0, platelet 193, ESR 14, procalcitonin 0.5 Sodium 138, potassium 4.3, chloride 106, bicarb 25.7, BUN 16, creatinine 0.6, blood glucose 189 Albumin 2.7 *Problems/Diagnosis: (1) Opioid overdose Status: Acute (2) Pneumonia Status: Acute Total Time Spent on D/C: Up to 30 Minutes Date of Service: January 31, 2025 Billing Provider: ESA SEGURA MD Common Visit Codes: 71050-UDC/OBS DISCH DAY >30min Problem Qualifiers (1) Pneumonia: Pneumonia type: due to unspecified organism Laterality: left Lung location: lower lobe of lung Qualified Codes: J18.9 - Pneumonia, unspecified organism JAMILA NAYLOR, COREY January 31, 2025 18:35 ESA SEGURA MD January 31, 2025 20:38
== END 2025-01-31 12:44 | disposition home or self-care (01) | DRG 139 ==
LOC: ER 12:17 → ED HOLD 17:33 → SUR 3N 19:55
PROVIDERS: ADMIT Internal Medicine; ATTEND Internal Medicine
PROC: BW251ZZ Computerized Tomography (CT Scan) of Chest, Abdomen and Pelvis using Low Osmolar Contrast (ICD-10-PCS; principal; 2025-01-29)
DX: J18.9 Pneumonia, unspecified organism (principal); R65.10 Systemic inflammatory response syndrome (SIRS) of non-infectious origin without acute organ dysfunction; R40.0 Somnolence; R31.29 Other microscopic hematuria; F15.10 Other stimulant abuse, uncomplicated; F10.10 Alcohol abuse, uncomplicated; F17.210 Nicotine dependence, cigarettes, uncomplicated
CPT/HCPCS: 36415; 70450; 71045; 71260; 74177; 80048; 80053; 80061; 80305; 81001; 82140; 83036; 83605; 83690; 83735; 83880; 84145; 85025; 85651; 87040; 87081; 93306; 94760; 96365; 96367; 96375; 99285; G0378; J0131; J0456; J0696; J1644; J1885; J2270; J2405; J2919; J3411; J3490; J7030; Q9967

== ENCOUNTER 2025-08-19 12:13 | Emergency (ER) | payer MEDICAID ==
[~2025-08-19] VITALS: Ht 175.3 cm; Wt 60.3 kg
[2025-08-19 12:24] VITALS: BP 143/71; PULSE 87; RESP 18; TEMP 98.3; O2SAT 99
[2025-08-19] MEDS ORDERED: DOXY100C43 PO (12:45)
--- NOTE | 2025-08-19 12:46 | Physician Documentation ---
History of Present Illness ~ Chief Complaint: Finger pain Stated Complaint: FINGER INFECTION Time Seen by MD: 12:38 Primary Medical Doctor: [facility] HPI 65-year-old male right-hand dominant presents to the emergency department for evaluation and management of suspected infection to his left middle finger. Reports 3-4 day history of nontraumatic redness and pain and swelling of the extensor surface of his left middle finger. No prior history of the same. Reports that his tetanus is up-to-date. He does have active and passive full range of motion that it is mildly painful. He has got excellent cap refill. When he is grossly neurologically intact radial median ulnar nerve. Tetanus within 5 years: No Medication Reconciliation Allergies: Coded Allergies: No Known Allergies (Unverified , 08/19/25) Scheduled Doxycycline Monohydrate (Doxycycline Monohydrate), 100 MG PO BID Review of Systems All Other Systems at this time: Reviewed and Negative Constitutional: Denies: fever Musculoskeletal: Reports: see HPI, pain, swelling Physical Exam Vital Signs: RN Vital Signs have been reviewed: Yes, Temperature: 98.3, Source: Oral, Heart Rate: 87, Respiratory Rate: 18, BP: 143/71, Pulse Oximetry: 99, Weight: 60.300 Oxygen Flow Rate: 0 General Appearance: alert, WD/WN EENT: PERRL/EOMI Digit: infection, limited ROM, swelling, other (erythema with 1 cm lesion just proximal the PIP on the extensor surface without abscess) Skin: normal color Neurologic: oriented x4 Psychiatric: normal mood/affect Progress Results/Orders Results/Orders Vital Signs 08/19/25 12:24 Temp 98.3 Pulse 87 Resp 18 B/P (MAP) 143/71 Pulse Ox 99 O2 Flow Rate 0 Medical Decision Making Additional information obtaine: N/A Findings 65-year-old male with a left middle finger extensor tenolysis pneumonitis not involving the joint at this time. No suspected foreign body or fracture. Patient is able to get very close to his palmar crease. FDS and FDP intact. No clear abscess requiring incision and drainage. Recommendations we will be for Epsom salt soaks, close follow up if 72 hour recheck and begin doxycycline. Patient's safely discharged from the emergency department. General Diff Dx:Considerations: Include: Other (See below) Shoulder Diff Dx:Consideration: Include: Other (Noncontributory) Elbow Diff Dx:Considerations: Include: Other Wrist Diff Dx:Considerations: Include: Other Hand Diff Dx:Considerations: Include: Tenosynovitis Finger Diff Dx:Considerations: Include: Abrasion, Cellulitis, Contusion, Fracture, Neurovascular injury, Subungual hematoma Departure Disposition: HOME / SELF CARE / HOMELESS Impression: Primary Impression: Tenosynovitis of finger Condition: Stable Discharge Instructions: Tenosynovitis Additional Instructions: Please begin outpatient antibiotics and do frequent soaks as directed. Follow up in 72 hours and return sooner if symptoms worsen. Thank you for visiting Emergency department [facility]. Referrals: NO PRIMARY CARE PROVIDER (PCP) Prescriptions Doxycycline Monohydrate (Doxycycline Monohydrate) 100 Mg Capsule 100 MG PO BID, #20 CAP may sub doxycycline hyclate or azithromycin z-pack as prescribed Prov: RENÉ MCLEAN 08/19/25 Education Educated: Patient Educated regarding: diagnosis, treatment, prognosis, need for follow up Signature Scribe Signature: . Attestation: . RENÉ MCLEAN Aug 19, 2025 12:46
== END 2025-08-19 12:52 | disposition home or self-care (01) ==
LOC: ER 12:14
DX: M65.942 Unspecified synovitis and tenosynovitis, left hand (principal)
CPT/HCPCS: 99283